=== PATIENT | male | born 1990 | race Two or more races ===

== ENCOUNTER 2025-03-25 13:36 | Emergency (ER) | payer OTHER, SELFPAY ==
[2025-03-25 13:39] VITALS: BP 194/98; PULSE 99; RESP 19; TEMP 36.4; O2SAT 98
[2025-03-25 13:40] VITALS: PULSE 104; O2SAT 98; BMI 35.7
--- NOTE | 2025-03-25 13:45 | PD.EDADULT ---
ED General RME/HPI General Chief complaint: Altered Mental Status Stated complaint: DIABETIC EPISODE Time Seen by Provider: 03/25/25 13:43 Arrival date/time: 03/25/25 13:36 RME / HPI RME / HPI narrative: See MDM Related Data Previous Rx's ?Medication ?Instructions ?Recorded blood-glucose sensor (FreeStyle #1 ea 03/25/25 Álvaro 3 Plus Sensor device) Allergies Allergy/AdvReac Type Severity Reaction Status Date / Time No Known Allergies Allergy Verified 03/25/25 13:53 Review of Systems Review of Systems Systems Reviewed: All systems reviewed, normal except as documented ED Exam Narrative Physical exam: Physical Exam GENERAL: NAD, AAOx3, obese HEENT: dry mucosa. Eyes open, symmetrical, & clear CARDIO: Heart RRR, no obvious murmurs, tachycardia PULM: No noted coughing/dyspnea CTA B/L, no R/W/R GI: Abdomen soft, nondistended, no pain on palpation. BSx4 SKIN/MSK/EXT: No wounds/rashes/edema/amputations, no pain on palpation. Pedal pulses present B/L NEURO: AAOx3, no focal neuro deficits, able to move all 4 extremities Course Course Course Narrative: See [facility] Quality Measures none Orders Category Date Time Status EKG (ED ONLY) *Do not use* NOW Care 03/25/25 14:28 Completed Sugar [Bedside Blood Glucose] NOW Care 03/25/25 14:09 Active Referral Registered Dietitian Stat Cons 03/25/25 14:15 Active EKG (ED Only) Stat Exams 03/25/25 14:28 Draft CBC Stat Lab 03/25/25 14:40 Completed CMP [Comprehensive Metabolic Panel] Stat Lab 03/25/25 14:40 Completed UA [Urinalysis] Stat Lab 03/25/25 15:21 Completed Potassium Chloride [K-Dur] Med 03/25/25 15:18 Discontinued 40 meq PO X1 ONE carVEDILOL [Coreg] Med 03/25/25 14:49 Discontinued 6.25 mg PO X1 ONE Vital Signs Vital signs: Vital Signs Temperature 97.6 F 03/25/25 13:39 Pulse Rate 99 03/25/25 13:39 Respiratory Rate 19 03/25/25 13:39 Blood Pressure 194/98 H 03/25/25 13:39 Pulse Oximetry (%) 98 03/25/25 13:39 Oxygen Delivery Method Room Air 03/25/25 13:39 Discharge Plan Plan Patient Disposition: HOME (Self Care) Prescriptions/Referrals Prescriptions/Med Rec: New (DME) FreeStyle Álvaro 3 Plus Sensor Device See Rx Instructions .Route Qty: 1 1RF Rx Instructions: As directed Referrals: No Primary/Family,Physician [Primary Care Provider] - In 1 week Problem List Clinical Impression: Hypoglycemia Patient/Caregiver Discharge Instructions Education Materials: Hypoglycemia (Low Blood Sugar), ED Hypoglycemia Oral Diabetic ... Additional Instructions: Follow-up with your primary care physician within 1 week of discharge Here in the ER your blood pressure and heart rate were elevated please follow-up with your primary care physician in regards to this and to see if you will be started on blood pressure medications or if your current regimen needs to be adjusted. You have been given a continues glucose monitoring device please use this to monitor your blood sugar levels as you adjust to your new dosage Lantus from your insulin pump Your labs here were all negative except for a mild elevation in white blood cells, you are recommended that when you see your primary care physician and have them repeat a CBC for resolution. Most likely this is a artifact considering you have no current infectious symptoms. Should your symptoms recur or worsen patient is instructed to return to the ER. Print Language: [place] Citizen Stand Alone Forms: [employer]ian Award Info., Patient Portal Info Letter MDM Narrative MDM hospital course: 34-year-old male with past medical history of type 1 diabetes on insulin pump who was brought to the ED due to altered mental status. 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 Patient apparently was spoken to and was not responding and was acting abnormally started hugging the sergeant. EMS was called and found to have a GCS of 13 and blood sugar of 40 and was brought here was given D50 and started on D10. On arrival here to the ER blood sugar was 164 with GCS of 15 at this time. Patient states this has never happened to him before since he was a kid. He also states that he recently was started on Lantus from his insulin pump and states his body is still adjusting and would have periods of having his BS really high and really low. He also states that at night his BS are dropping to the 20's. 1349: labs ordered, consulted registered radiologic technologist for possible CGM for patient. 1538: CBC shows mild leukocytosis, CMP shows a mild hypokalemia rest of labs unremarkable, ordered 40 mEq of potassium chloride p.o. X1, carvedilol 6.25 mg p.o. x 1 given for tachycardia and hypertension CGM provided to the patient, UA negative for acute infection. Patient at this time is safe for discharge. Patient was instructed to follow-up with his primary care physician within 1 week of discharge. Patient has been given a CGM to monitor his glucose continuously Should any symptoms recur or worsen patient is instructed to return to the ED. Clinical Information Provided by patient Medical Records Reviewed [facility] Medication Administration(s) Medication Administration History Discontinued Medications Carvedilol (Carvedilol 3.125 Mg Tablet) 6.25 mg PO X1 ONE Stop: 03/25/25 14:50 Last Admin: 03/25/25 15:14 Dose: 6.25 mg Documented By: GM Potassium Chloride (Potassium Chloride 20 Meq Tabcr) 40 meq PO X1 ONE Stop: 03/25/25 15:19 Last Admin: 03/25/25 15:34 Dose: 40 meq Documented By: GM
[2025-03-25 13:48] VITALS: BP 185/120; PULSE 96; RESP 25; TEMP 37.2; O2SAT 99
--- NOTE | 2025-03-25 14:28 | EKG_ITS ---
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
[2025-03-25 14:52] LABS: Basophils # (Auto) 0.1 Thou/mm3 (0.0-0.2); Basophils % (Auto) 0 % (0-2.5); Eosinophils # (Auto) 0.0 Thou/mm3 (0.0-0.5); Eosinophils % (Auto) 0 % (0-10); Hematocrit 43.6 % (41.0-53.0); Hemoglobin 16.3 g/dL (13.5-16.0); Immature Granulocytes Auto 0.07 Thou/mm3 (0.00-0.00); Lymphocytes # (Auto) 1.2 Thou/mm3 (1.0-4.8); Lymphocytes % (Auto) 8 % (10-50); Mean Corpuscular HGB Conc 37.4 g/dl (31.0-37.0); Mean Corpuscular Hemoglobin 31.7 pg (25.0-35.0); Mean Corpuscular Volume 85 fL (80-100); Monocytes # (Auto) 0.8 Thou/mm3 (0.0-0.8); Monocytes % (Auto) 5 % (0-12); Neutrophils # (Auto) 13.5 Thou/mm3 (1.8-7.7); Neutrophils % (Auto) 87 % (37-80); Nucleated Red Blood Cell # 0.00 Thou/mm3 (0.00-0.00); Nucleated Red Blood Cell % 0 /100 WBC (0); Platelet Count 356 Thou/mm3 (140-440); RDW Standard Deviation 39.4 fL (35.1-43.9); Red Blood Count 5.14 Miln/mm3 (4.50-5.90); White Blood Count 15.6 Thou/mm3 (3.8-10.6)
[2025-03-25 15:13] LABS: Alanine Aminotransferase 34 U/L (10-49); Albumin, Serum 4.4 gm/dL (3.5-5.0); Albumin/Globulin Ratio 1.5 (1.2-2.2); Alkaline Phosphatase 118 U/L (46-116); Anion Gap 9 (7-16); Aspartate Amino Transferase 30 U/L (0-34); BUN/Creatinine Ratio 17 Ratio (12-20); Bilirubin,Total 0.7 mg/dL (0.3-1.2); Blood Urea Nitrogen 15 mg/dL (9-23); Calcium 9.1 mg/dL (8.3-10.6); Calcium (Corrected) 9.1 mg/dL (8.5-10.1); Carbon Dioxide 28.4 mMol/L (20.0-31.0); Chloride 100 mMol/L (98-107); Creatinine (Component) 0.9 mg/dL (0.6-1.3); Estimated Creatinine Clearance 121.8 mL/min (>60); Globulin 3.0 gm/dL (2.3-3.5); Glucose 175 mg/dL (74-106); Osmolality,Calculated 278 (275-295); Potassium 3.2 mMol/L (3.4-5.1); Sodium 137 mMol/L (136-145); Total Protein 7.4 gm/dL (5.7-8.2); eGFR > 60 See Note
[2025-03-25 15:14] VITALS: BP 174/93; PULSE 92
--- NOTE | 2025-03-25 15:15 | PC.DIETICIAN ---
MD consult received. Patient has an insulin pump and is familiar with CGMs; he respectfully declined formal nutrition education. Patient downloaded the Álvaro Formatta to his phone and a [employer] Álvaro 3 Plus sensor was provided.
[2025-03-25 15:30] LABS: Collection Type, Urine Clean Catch; Squamous Epithelial Cell,Urine 0 /hpf (0-5)
[2025-03-25 15:37] LABS: Bilirubin,Urine Negative (Negative); Blood,Urine Negative (Negative); Clarity,Urine Clear (Clear/Hazy); Color,Urine Yellow (Lt Yel-Yel); Glucose, Urine 1+ (Negative); Ketones,Urine Negative (Negative); Leukocyte Esterase,Urine Negative (Negative); Nitrite,Urine Negative (Negative); PH,Urine 6.0 (5.0-7.0); Protein,Urine 1+ (Neg - Trace); RBC,Urine < 1 /hpf (0-3); Specific Gravity,Urine 1.024 (1.001-1.035); Urobilinogen,Urine Negative mg/dL (0.0-1.0); WBC,Urine 2 /hpf (0-5)
[2025-03-25 16:09] VITALS: BP 162/78; PULSE 84; RESP 17; TEMP 36.8; O2SAT 97
== END 2025-03-25 16:13 | disposition home or self-care (01) ==
PROVIDERS: Student in an Organized Health Care Education/Training Program; Emergency Provider Family Medicine
DX: E10.649 Type 1 diabetes mellitus with hypoglycemia without coma (principal); R94.31 Abnormal electrocardiogram [ECG] [EKG]; D72.829 Elevated white blood cell count, unspecified; E87.6 Hypokalemia; Z79.4 Long term (current) use of insulin
CPT/HCPCS: 36415; 80053; 81001; 85025; 93005; 99283; A9270